=== PATIENT | female | born 1975 | race Two or more races ===

== ENCOUNTER 2024-04-26 14:28 | Outpatient (AMB) | payer MEDICAID, SELFPAY ==
[2024-04-26 14:36] VITALS: BP 176/106; PULSE 90; RESP 18; TEMP 36.2; O2SAT 99
--- NOTE | 2024-04-26 14:36 | PD.GSCLVISIT ---
Vital Signs - [facility] 04/26/24 14:36 Height 1.68 m Height Method Stated Weight 84.822 kg Weight Measurement Method Standing Scale BMI 30.0 BP 176/106 H Blood Pressure Source Automatic Cuff Blood Pressure Location Right Upper Arm Position Sitting Respiration 18 Pulse 90 Pulse Source Monitor Temp 97.1 F Temp Source Temporal Artery Scan Pulse Oximetry (%) 99 Oxygen Delivery Method Room Air Med/Allergies Allergies & Medications Allergies morphine Adverse Reaction (Unknown, Verified 04/26/24 14:37) Medication Reconciliation Aspirin Ec * (ECOTRIN *) 81 mg PO QDAY ##0 06/14/16 [History Confirmed 04/26/24] atorvastatin 80 mg tablet (Lipitor) 80 mg PO HS #0 tabs 06/14/16 [History Confirmed 04/26/24] clopidogrel 75 mg tablet (Plavix) 75 mg PO QDAY #0 tabs 06/14/16 [History Confirmed 04/26/24] insulin glargine 100 unit/mL subcutaneous solution (Lantus U-100 Insulin) 50 unit subcut BIDWM ##2 01/15/17 [History Confirmed 04/26/24] empagliflozin 12.5 mg-metformin 1,000 mg tablet (Synjardy) 1 tab PO BID 08/08/22 [History Confirmed 04/26/24] carvedilol 6.25 mg tablet 6.25 mg PO BID 04/15/24 [History Confirmed 04/26/24] empagliflozin 12.5 mg-metformin 1,000 mg tablet (Synjardy) 1 tab PO BID 04/15/24 [History Confirmed 04/26/24] semaglutide 3 mg tablet (Rybelsus) 3 mg PO QDAY 04/15/24 [History Confirmed 04/26/24] sitagliptin phosphate 100 mg tablet (Januvia) 100 mg PO QDAY 04/15/24 [History Confirmed 04/26/24] MA Intake Visit Data Collection New Patient or Established: Established Patient (seen at [facility] within 3 years) Seen by Clinical Staff ONLY (RN/MA): No Pain Present Currently: No Independent Film Maker Required: No PCP or OBGYN visit in last 3 months: Yes Hx Now: No Do You Feel Safe at Home: Yes Authorities Contacted: N/A Smoking Status Smoking Status: Never smoker Immunization / Flu Flu Vaccine in the Last 12 Months: No Flu Vaccine Exclusion Criteria: No Exclusion Criteria Past Medical History Past Medical History NEUROLOGIC: Negative Neurological Disorders or Seizures CARDIAC: Positive Coronary Artery Disease, Atherosclerotic Heart Disease, Hypercholesterolemia and Hypertension; Negative Congestive Heart Failure RESPIRATORY: Negative Chronic Obstructive Pulmonary Disease (COPD) GASTROINTESTINAL: Positive Gastrointestinal Disorders and Gall Bladder Disease GENITOURINARY: Negative Genitourinary Disorders or Renal Disease REPRODUCTIVE: Positive Previous Pregnancies ENT: Positive Blind and Retinal Detachment ENDOCRINE: Positive Diabetes Mellitus Type 2; Negative Diabetes Mellitus Type 1 HEMATOLOGIC: Negative Anemia PSYCHO/SOCIAL: Positive Anxiety OTHER HISTORY: Positive Measles; Negative Autoimmune Disease, Blood Transfusions, Blood Transfusion Reaction, Anesthesia Reactions, MRSA or Cancer Family History FAMILY HISTORY: Positive Family Cancer and Family Surgery; Negative Family Psychiatric Problems, Family Respiratory Disorders, Family Cardiac Disorders, Family Gastrointestinal Problems or Family Anesthesia Reaction Surgical History SURGICAL: Positive Coronary Artery Bypass Graft (2017), Coronary Stent, Angiogram, Eye Surgery, Joint Replacement and Section; Negative Endocrine Surgery, Abdominal Surgery, Nephrectomy or Neurologic Surgery Social History SMOKING STATUS: Smoking status: Never smoker ALCOHOL: Alcohol Intake: Never HOUSING: Housing: House HPI HPI Narrative 49F with HTN, HLD, CAD s/p CABG 7 years ago on plavix referred for colonoscopy due to family history here to discuss results. Pt has no complaints, feels well overall ROS Review of Systems Systems Reviewed: All systems reviewed, normal except as documented Objective/Exam General General Appearance: alert and cooperative Resp Respiratory exam: Absent respiratory distress Results Colonoscopy report reviewed Assessment & Plan Diagnosis / Problem List (1) Encounter to discuss colonoscopy results: Status: Acute Assessment & Plan: 49F s/p colonoscopy due to family history which was negative although prep was inadequate. I explained that for safety I would recommend repeating surveillance in 3 years. All questions were answered and pt expressed understanding Office Procedures GNS Level of Care Nursing/Assessment Patient Status: Established Patient Nursing Assessment/Reassesment: Medication Reconciliation, Update PMH in EMR and Vital Signs Coordination of Care: Complex Care and Chronic Disease 1-5, Education Complex Pt/Fam, Consent,records obtained, informed consent, Results/Orders obtained and Staff clarify orders Established Patient Charge Established Patient Point Assignment: 95 Established Patient Point Charge: Level 3 (80-115) Patient Portal Questionaires Social History Living Situation History Housing: House Tobacco History Smoking Status: Never smoker Alcohol History Alcohol Intake: Never Domestic Abuse History Do You Feel Safe at Home: Yes Review of Systems Report any current symptoms Only answer those that you have currently: Past Medical History Past Medical History Have you ever been diagnosed with any of the following: Neurological Problems Seizures: No Cardiology Problems Coronary Artery Disease: Yes Atherosclerotic Heart Disease: Yes Hypercholesterolemia: Yes Congestive Heart Failure: No Hypertension: Yes Respiratory Problems Chronic Obstructive Pulmonary Disease (COPD): No Stomache/Intestinal Problems Gall Bladder Disease: Yes Genital/Urinary Problems Renal Disease: No Reproductive Problems Previous Pregnancies: Yes Head,Eye,Nose,Throat Problems Blind: Yes Retinal Detachment: Yes Endocrine Problems Diabetes Mellitus Type 1: No Diabetes Mellitus Type 2: Yes Blood Problems Anemia: No Psychologic Problems Anxiety: Yes Other Problems Autoimmune Disease: No Blood Transfusions: No Blood Transfusion Reaction: No Anesthesia Reactions: No MRSA: No Measles: Yes Cancer: No Surgical History Coronary Artery Bypass Graft: Yes (2016)
== END 2024-04-26 14:46 | disposition home or self-care (01) ==
LOC: HODSRG 14:28
PROVIDERS: PCP Nurse Practitioner Family; Referring Provider Nurse Practitioner Family; Supervising Provider Surgery; Visit Provider Surgery
DX: Z48.815 Encounter for surgical aftercare following surgery on the digestive system (principal)
CPT/HCPCS: 99213; G0463

== ENCOUNTER → 2024-06-17 | Outpatient (CLI) | payer MEDICAID, SELFPAY ==
--- NOTE | 2024-06-17 15:30 | XR_ITS ---
Examination: Breast ultrasound complete, bilateral Date and time of exam: June 17, 2024 at 1523 hours INDICATIONS: Mammogram April 01, 2024 6 mm focal asymmetry upper outer right breast Technique: Real-time grayscale ultrasonographic imaging bilateral breasts, including all 4 quadrants as well as nipple retroareolar and axillary regions. Findings: Sonographic images right breast No cystic or solid mass Sonographic images left breast No cystic or solid mass IMPRESSION: BI-RADS Category 2: Benign findings
== END | disposition home or self-care (01) ==
LOC: CDIM 15:07
PROVIDERS: PCP Nurse Practitioner Family; Referring Provider Nurse Practitioner Family; Visit Provider Nurse Practitioner Family
DX: R92.8 Other abnormal and inconclusive findings on diagnostic imaging of breast (principal)
CPT/HCPCS: 76641

== ENCOUNTER → 2025-05-02 | Outpatient (CLI) | payer MEDICAID, SELFPAY ==
--- NOTE | 2025-05-02 08:30 | XR_ITS ---
Examination: Screening digital mammography, bilateral Computer aided detection 3-D breast Tomosynthesis, bilateral Date and time of exam: 05/02/2025, 8:25 a.m. Comparisons: 04/28/2024 Indications: Screening Technique: Nonmagnified MLO, CC views of the breasts to been obtained, reconstructed from 3-D Tomosynthesis images. R2 computer aided detection program utilized for evaluation of suspicious masses and/or abnormal calcifications. 3-D Tomosynthesis images obtained. Technologist: Findings: The breasts are heterogeneously dense, which may obscure small masses. No evidence of abnormal masses or suspicious calcifications. Impression: BI-RADS category 1: Negative findings (within normal) Recommend 1 year follow-up mammogram
== END | disposition home or self-care (01) ==
DX: Z12.31 Encounter for screening mammogram for malignant neoplasm of breast (principal); R92.313 Mammographic fatty tissue density, bilateral breasts
CPT/HCPCS: 77063; 77067